=== PATIENT | female | born 1940 | race African-American/Black ===

== ENCOUNTER 2019-05-05 16:58 | Inpatient (IN) ==
[2019-05-05 17:35] LABS: Basophils % 0.4 % (0.0-0.8); Eosinophils # 0.1 10*3/uL (0.0-0.87); Eosinophils % 0.9 % (0.00-10.9); Hematocrit 26.1 VOL% (35.7-47.0); Hemoglobin 8.9 GM/DL (12.0-16.0); Immature Granulocytes % 0.7 %; Immature Granulocytes Absolute 0.08 #; Lymphocytes # 0.6 10*3/uL (1.4-4.0); Mean Corpuscular HGB Conc 34.1 GM/DL (32-36); Mean Corpuscular Volume 86.1 FL (87-102); Mean Platelet Volume 11.3 FL (9.6-12.0); Monocytes % 6.9 % (1.7-12.7); NRBC # 0.07 10*3/uL; Neutrophils % 86.1 % (38.7-73.9); Platelet Count 180 T/CUMM (130-400); Red Blood Count 3.03 MC/CUMM (3.8-5.5); Red Cell Distribution Width 16.5 % (9.3-17.3); White Blood Count 11.3 T/CUMM (4-12)
[2019-05-05 17:50] LABS: Alanine Aminotransferase 12 U/L (13-56); Albumin 1.8 G/DL (3.4-5.0); Alkaline Phosphatase 71 U/L (45-117); Aspartate Amino Transferase 59 U/L (0-37); Blood Urea Nitrogen 10 MG/DL (7-18); Estimated Glom Filtration Rate 61 ML/MIN; Glucose 138 MG/DL (74-106); Osmolality,Calculated 260.8 MOS/KG (273-304); Total Protein 6.5 G/DL (6.4-8.3)
[2019-05-05 18:00] LABS: Anisocytosis Slight; Microcytosis Slight; Platelet Estimate Adequate; Polychromasia Few; Target Cells Few
[2019-05-05 18:05] LABS: Apearance,Urine Slightly Hazy (Clear); Bilirubin,Urine Negative (Negative); Blood, Urine Negative (Negative); Glucose,Urine (UA) Negative (Negative); Hyaline Casts,Urine 28 /LPF (0-3); Ketones,Urine Negative (Negative); Mucus,Urine Occasional /LPF (Occasional); Nitrite,Urine Negative (Negative); Protein,Urine Negative; RBC,Urine 1 /HPF (0-4); Squamous Epithelial Cell,Urine Occasional /HPF (0-10); Urine Color Amber (Yellow); Urine Specific Gravity 1.018 (1.001-1.035); WBC,Urine 1 /HPF (0-6)
[2019-05-05] MEDS ORDERED: POTASSIUM CHLORIDE 20 MEQ TABLET PO STA (18:32)
[2019-05-05] MEDS ORDERED: DEXTROSE 10% 250 ML BAG IV PRN (18:42)
[2019-05-05] MEDS ORDERED: ONDANSETRON 4 MG/2 ML VIAL IV PRN (18:42)
[2019-05-05] MEDS ORDERED: GLUCAGON 1 MG VIAL IM PRN (18:42)
[2019-05-05] MEDS ORDERED: PANTOPRAZOLE 40 MG VIAL IV STA (18:43)
[2019-05-05] MEDS ORDERED: LORazepam 2 MG/1 ML VIAL IV PRN (18:49)
[2019-05-05] MEDS: SIMVASTATIN 20 MG TABLET PO SCH (21:54)
[2019-05-05] MEDS ORDERED: POTASSIUM CHLORIDE 20 MEQ TABLET PO ONE (22:00)
[2019-05-05] MEDS: SODIUM CHLORIDE 0.9% 1,000 ML IV SCH (22:07)
[2019-05-06] MEDS: SODIUM CHLORIDE 0.9% 1,000 ML IV SCH (05:27)
[2019-05-06 06:06] LABS: Basophils % 0.4 % (0.0-0.8); Eosinophils # 0.2 10*3/uL (0.0-0.87); Eosinophils % 1.7 % (0.00-10.9); Hematocrit 26.5 VOL% (35.7-47.0); Hemoglobin 8.9 GM/DL (12.0-16.0); Immature Granulocytes % 0.7 %; Immature Granulocytes Absolute 0.08 #; Lymphocytes # 0.7 10*3/uL (1.4-4.0); Lymphocytes % 6.4 % (21.3-54.2); Mean Corpuscular HGB Conc 33.6 GM/DL (32-36); Mean Corpuscular Volume 87.7 FL (87-102); Mean Platelet Volume 10.7 FL (9.6-12.0); Monocytes % 7.6 % (1.7-12.7); NRBC # 0.02 10*3/uL; Neutrophils % 83.2 % (38.7-73.9); Platelet Count 262 T/CUMM (130-400); Red Blood Count 3.02 MC/CUMM (3.8-5.5); Red Cell Distribution Width 16.8 % (9.3-17.3); White Blood Count 10.8 T/CUMM (4-12)
[2019-05-06 06:24] LABS: Albumin 1.6 G/DL (3.4-5.0); Bilirubin,Total 1.9 MG/DL (0.2-1.0); Calcium 8.4 MG/DL (8.5-10.1); Osmolality,Calculated 258.8 MOS/KG (273-304); Total Protein 6.3 G/DL (6.4-8.3)
[2019-05-06] MEDS ORDERED: POTASSIUM CHLORIDE 20 MEQ TABLET PO PRN (07:00)
[2019-05-06] MEDS ORDERED: MAGNESIUM SULF RIDER 2 GM in PREMIX 1 EACH IV ONE (08:30)
[2019-05-06] MEDS: FOLIC ACID 1 MG TABLET PO SCH (08:47)
[2019-05-06] MEDS: THIAMINE 100 MG TABLET PO SCH (08:47)
[2019-05-06] MEDS: MULTIVITAMIN (CENTRUM) TABLET PO SCH (08:48)
[2019-05-06] MEDS ORDERED: amLODIPine 10 MG TABLET PO SCH (09:00)
[2019-05-06] MEDS: POTASSIUM CHLORIDE 20 MEQ TABLET PO SCH (09:02)
[2019-05-06] MEDS: SIMVASTATIN 20 MG TABLET PO SCH (20:36)
[2019-05-07] MEDS: SODIUM CHLORIDE 0.9% 1,000 ML IV SCH ×2 (01:55→09:26)
[2019-05-07 07:14] LABS: Risk Ratio 2.5; VLDL CHOLESTEROL 12.6 MG/DL
[2019-05-07 07:50] LABS: Basophils # 0.1 10*3/uL (0.0-0.2); Basophils % 0.4 % (0.0-0.8); Eosinophils # 0.3 10*3/uL (0.0-0.87); Eosinophils % 2.2 % (0.00-10.9); Hematocrit 26.6 VOL% (35.7-47.0); Hemoglobin 8.9 GM/DL (12.0-16.0); Immature Granulocytes Absolute 0.11 #; Lymphocytes # 1.1 10*3/uL (1.4-4.0); Lymphocytes % 9.7 % (21.3-54.2); Mean Corpuscular HGB Conc 33.5 GM/DL (32-36); Mean Corpuscular Volume 89.9 FL (87-102); Mean Platelet Volume 11.3 FL (9.6-12.0); Monocytes % 6.9 % (1.7-12.7); NRBC # 0.02 10*3/uL; Neutrophils % 79.8 % (38.7-73.9); Platelet Count 298 T/CUMM (130-400); Red Blood Count 2.96 MC/CUMM (3.8-5.5); Red Cell Distribution Width 17.9 % (9.3-17.3); White Blood Count 11.6 T/CUMM (4-12)
[2019-05-07 08:18] LABS: Calcium 7.7 MG/DL (8.5-10.1); Osmolality,Calculated 265.2 MOS/KG (273-304)
[2019-05-07] MEDS: POTASSIUM CHLORIDE 20 MEQ TABLET PO SCH (09:19)
[2019-05-07] MEDS: MULTIVITAMIN (CENTRUM) TABLET PO SCH (09:19)
[2019-05-07] MEDS: FOLIC ACID 1 MG TABLET PO SCH (09:19)
[2019-05-07] MEDS: THIAMINE 100 MG TABLET PO SCH (09:19)
[2019-05-07 13:42] VITALS: BP 125/68
== END 2019-05-07 14:48 | disposition swing bed (61) | DRG 378 ==
LOC: EDUNIT# → N.ED 16:58 → N.EDINP 18:42 → N.5E 19:49
PROVIDERS: ADMIT Internal Medicine; ATTEND Internal Medicine